=== PATIENT | male | born 1955 | race Caucasian/White ===

== ENCOUNTER 2018-09-22 07:10 | Emergency (ER) | payer OTHER ==
[2018-09-22] MEDS ORDERED: TAM75CAP PO (08:09)
[2018-09-22 08:30] VITALS: BP 138/64
== END 2018-09-22 08:30 | disposition home or self-care (01) | DRG 153 ==
LOC: ED 07:10
DX: J11.1 Influenza due to unidentified influenza virus with other respiratory manifestations (principal); I10 Essential (primary) hypertension; E78.5 Hyperlipidemia, unspecified

== ENCOUNTER 2019-08-03 07:51 | Emergency (ER) | payer OTHER ==
[~2019-08-03] VITALS: Ht 175.3 cm; Wt 122.0 kg
[~2019-08-03 07:51] MED LIST: TAM75CAP PO
[2019-08-03] MEDS ORDERED: LIPITOR20 M1 PO (08:20)
[2019-08-03] MEDS ORDERED: LISINOPRIL5 MG PO (08:20)
[2019-08-03 08:38] LABS: HEMATOCRIT 45.7 % (39.0-50.0); HEMOGLOBIN 14.7 g/dl (14.0-18.0); IMMATURE GRANULOCYTES 0.5 % (0.0-5.0); MEAN CELL VOLUME 87.2 fL CALC (80.0-100.0); MEAN CORPUSCULAR HGB 28.1 pG CALC (26.0-32.0); MEAN CORPUSCULAR HGB CONC 32.2 g/L CALC (32.0-36.0); NEUT# 4.3 thou/uL (1.82-7.42); RED BLOOD COUNT 5.24 mill/uL (4.70-6.10); RED CELL DISTRI WIDTH 13.4 % (11.5-15.5)
[2019-08-03 08:49] LABS: ANION GAP 16 (6-22 (CALC)); BUN 14 mg/dL (8-23); BUN/CREATININE RATIO 16 (12-20 (CALC)); CARBON DIOXIDE 26 mmol/l (22-30); CHLORIDE 102 mmol/l (95-108); CREATININE 0.9 mg/dL (0.7-1.3); GFR > 60 ML/MIN (>=60 (CALC)); GFR FOR AFR.AMER. > 60 ML/MIN (>=60 (CALC)); POTASSIUM 4.6 mmol/l (3.5-5.1); SODIUM 139 mmol/l (137-146)
[2019-08-03 08:52] VITALS: BP 159/79
== END 2019-08-03 08:52 | disposition short-term general hospital (02) | DRG 313 ==
LOC: ED 07:51
PROVIDERS: Family Medicine
DX: R07.9 Chest pain, unspecified (principal); R51 Headache; R94.31 Abnormal electrocardiogram [ECG] [EKG]; I10 Essential (primary) hypertension